=== PATIENT | female | born 1945 | race Caucasian/White ===

== ENCOUNTER → 2018-09-30 | Outpatient (CLI) | payer MEDICARE, OTHER ==
[2018-09-30 09:05] VITALS: BP 161/78
[2018-09-30 10:30] VITALS: BP 155/80
[2018-09-30 12:35] VITALS: BP 162/78
--- NOTE | 2018-09-30 12:52 | NUR ---
INFUSION COMPLETED AND TOLERATED WELL. DISCHARGE INSTRUCTION REVIEWED. DENEIS QUESTIONS OR NEEDS AT DISCHARGE.
== END ==
LOC: M.INFUS 08:52
DX: E83.52 Hypercalcemia (principal); I12.9 Hypertensive chronic kidney disease with stage 1 through stage 4 chronic kidney disease, or unspecified chronic kidney disease; N18.3 Chronic kidney disease, stage 3 (moderate); I48.91 Unspecified atrial fibrillation; K21.9 Gastro-esophageal reflux disease without esophagitis; E78.5 Hyperlipidemia, unspecified; D89.9 Disorder involving the immune mechanism, unspecified

== ENCOUNTER → 2019-03-01 | Outpatient (CLI) | payer MEDICARE, OTHER | LOC: M.ULTRA 09:15 | DX: E04.1 Nontoxic single thyroid nodule (principal) ==

== ENCOUNTER → 2021-01-26 | Outpatient (CLI) | payer MEDICARE, OTHER | LOC: M.CT 07:55 | PROVIDERS: ATTEND Registered Nurse Diabetes Educator | DX: J98.4 Other disorders of lung (principal); J98.11 Atelectasis; M25.78 Osteophyte, vertebrae; I25.10 Atherosclerotic heart disease of native coronary artery without angina pectoris; I70.0 Atherosclerosis of aorta; N18.32 Chronic kidney disease, stage 3b; R79.81 Abnormal blood-gas level ==